=== PATIENT | female | born 1955 | race Caucasian/White ===

== ENCOUNTER → 2018-02-09 08:30 | Outpatient (CLI) | payer BC, SELFPAY ==
[2018-02-09 09:10] LABS: Basophils % 1.1 % (0.1-2.0); Eosinophils # 0.1 K/mm3 (0.0-0.4); Hematocrit 42.9 % (37.0-47.0); Hemoglobin 13.8 g/dL (12.2-16.2); Lymphocytes # 1.1 K/mm3 (0.7-4.5); Mean Corpuscular HGB Conc 32.1 g/dL (31.8-35.4); Mean Corpuscular Hemoglobin 28.9 pg (27.0-31.2); Mean Corpuscular Volume 90.1 fl (81-99); Mean Platelet Volume 7.9 fl (7.4-10.4); Monocytes # 0.3 K/mm3 (0.1-1.0); Monocytes % 7.9 % (1.7-9.3); Neutrophils # 2.1 K/mm3 (1.8-7.8); Platelet Count 219 K/mm3 (142-424); Red Blood Count 4.76 M/mm3 (4.20-5.40); Red Cell Distribution Width 12.4 % (11.5-17.5); White Blood Count 3.6 K/mm3 (4.8-10.8)
[2018-02-09 09:45] LABS: Alanine Aminotransferase 39 U/L (12-78); Albumin Level 4.2 gm/dL (3.4-5.0); Albumin/Globulin Ratio 1.7 (1.1-1.8); Alkaline Phosphatase 64 U/L (46-116); Anion Gap 12.9 mEq/L (5-15); Aspartate Amino Transferase 21 U/L (15-37); Bilirubin,Total 0.7 mg/dL (0.2-1.0); Blood Urea Nitrogen 16 mg/dL (7-18); Calcium 9.2 mg/dL (8.5-10.1); Carbon Dioxide 29 mmol/L (21.0-32.0); Chloride 106 mmol/L (98-107); Chol/HDL Ratio 2.1 (1-3.5); Cholesterol 205 mg/dL (140-200); Creatinine,Serum 0.75 mg/dL (0.55-1.02); Estimated Glomerular Filt Rate 78 ml/min (>60); GFR (African American) 94 ML/MIN (>60); Globulin 2.5 gm/dl (1.3-3.2); Glucose 93 mg/dL (74-106); HDL Cholesterol 98 mg/dL (29-89); LDL Cholesterol 97 mg/dL (0-130); Potassium 3.9 mmoL/L (3.5-5.1); Sodium 144 mmol/L (136-145); Total Protein,Serum 6.7 gm/dL (6.4-8.2); Triglycerides 50 mg/dL (30-200); VLDL Cholesterol 10 mg/dL (0-40)
[2018-02-11 11:25] LABS: Folate >20.0 ng/mL (>3.0)
[2018-02-11 11:28] LABS: Vitamin D 25 Hydroxy 40.1 ng/mL (30.0-100.0)
== END ==
PROVIDERS: PCP Nurse Practitioner Family; Visit Provider Nurse Practitioner Family
DX: E78.1 Pure hyperglyceridemia (principal); E53.8 Deficiency of other specified B group vitamins; M85.80 Other specified disorders of bone density and structure, unspecified site
CPT/HCPCS: 36415; 80053; 80061; 82652; 82746; 85025

== ENCOUNTER → 2018-11-13 08:28 | Outpatient (CLI) | payer BC, SELFPAY ==
[2018-11-13 09:50] LABS: Basophils # 0.1 K/mm3 (0-0.2); Basophils % 1.3 % (0.1-2.0); Eosinophils # 0.2 K/mm3 (0.0-0.4); Eosinophils % 4.4 % (0.1-12.0); Hematocrit 45.6 % (37.0-47.0); Hemoglobin 14.6 g/dL (12.2-16.2); Lymphocytes # 1.1 K/mm3 (0.7-4.5); Lymphocytes % 32.4 % (10-50); Mean Corpuscular HGB Conc 32.1 g/dL (31.8-35.4); Mean Corpuscular Hemoglobin 29.2 pg (27.0-31.2); Mean Corpuscular Volume 90.9 fl (81-99); Mean Platelet Volume 8.2 fl (7.4-10.4); Monocytes # 0.3 K/mm3 (0.1-1.0); Monocytes % 9.3 % (1.7-9.3); Neutrophils # 1.8 K/mm3 (1.8-7.8); Neutrophils % 52.7 % (37.0-80.0); Platelet Count 226 K/mm3 (142-424); Red Blood Count 5.01 M/mm3 (4.20-5.40); Red Cell Distribution Width 12.8 % (11.5-17.5); White Blood Count 3.5 K/mm3 (4.8-10.8)
[2018-11-13 10:18] LABS: Alanine Aminotransferase 41 U/L (12-78); Albumin/Globulin Ratio 1.7 (1.1-1.8); Alkaline Phosphatase 61 U/L (46-116); Anion Gap 12.9 mEq/L (5-15); Aspartate Amino Transferase 22 U/L (15-37); Bilirubin,Total 0.6 mg/dL (0.2-1.0); Blood Urea Nitrogen 17 mg/dL (7-18); Carbon Dioxide 28 mmol/L (21.0-32.0); Chloride 107 mmol/L (98-107); Chol/HDL Ratio 2.2 (1-3.5); Cholesterol 204 mg/dL (140-200); Creatinine,Serum 0.86 mg/dL (0.55-1.02); Estimated Glomerular Filt Rate 67 ml/min (>60); GFR (African American) 81 ML/MIN (>60); Globulin 2.3 gm/dl (1.3-3.2); Glucose 90 mg/dL (74-106); HDL Cholesterol 94 mg/dL (29-89); LDL Cholesterol 103 mg/dL (0-130); Potassium 3.9 mmoL/L (3.5-5.1); Sodium 144 mmol/L (136-145); Total Protein,Serum 6.3 gm/dL (6.4-8.2); Triglycerides 36 mg/dL (30-200); VLDL Cholesterol 7 mg/dL (0-40)
[2018-11-15 03:34] LABS: Vitamin D 25 Hydroxy 30.4 ng/mL (30.0-100.0)
== END ==
PROVIDERS: Visit Provider Nurse Practitioner Family
DX: E78.1 Pure hyperglyceridemia (principal); E53.8 Deficiency of other specified B group vitamins; M85.89 Other specified disorders of bone density and structure, multiple sites
CPT/HCPCS: 36415; 80053; 80061; 82652; 85025

== ENCOUNTER → 2018-12-22 08:24 | Outpatient (CLI) | payer BC, SELFPAY ==
--- NOTE | 2018-12-22 08:27 | XR_ITS ---
PROCEDURE: XR DEXA AXIAL SKELETON CLINICAL INDICATION: OSTEOPENIA COMPARISON: No exams were available for comparison FINDINGS: L1-L4 density has a bone density of 1.389 grams/centimeters sq with a T-score of 1.7. The lowest density in the hips is in the right femoral neck at 0.817 grams/centimeters sq with a T-score -1.6 consistent IMPRESSION: With osteopenia osteopenia with moderate fracture risk. Treatment is advised. Suggest follow-up exam December 2020 Dictated by: Phillip Atkins MD 12/23/2018 07:17 Signed by: <Electronically signed by Phillip Atkins MD in [place]> 12/23/2018 07:17
== END ==
PROVIDERS: PCP Nurse Practitioner Family; Visit Provider Nurse Practitioner Family
DX: Z13.820 Encounter for screening for osteoporosis (principal); M85.89 Other specified disorders of bone density and structure, multiple sites
CPT/HCPCS: 77080

== ENCOUNTER → 2019-12-13 09:56 | Outpatient (CLI) | payer BC, SELFPAY ==
[2019-12-13 10:32] LABS: Basophils # 0.1 K/mm3 (0-0.2); Basophils % 1.4 % (0.1-2.0); Eosinophils # 0.1 K/mm3 (0.0-0.4); Eosinophils % 3.6 % (0.1-12.0); Hematocrit 44.5 % (37.0-47.0); Hemoglobin 15.1 g/dL (12.2-16.2); Lymphocytes # 1.2 K/mm3 (0.7-4.5); Mean Corpuscular Hemoglobin 30.7 pg (27.0-31.2); Mean Corpuscular Volume 90.5 fl (81-99); Mean Platelet Volume 8.4 fl (7.4-10.4); Monocytes # 0.4 K/mm3 (0.1-1.0); Monocytes % 10.1 % (1.7-9.3); Neutrophils # 2.2 K/mm3 (1.8-7.8); Platelet Count 229 K/mm3 (142-424); Red Blood Count 4.92 M/mm3 (4.20-5.40); Red Cell Distribution Width 12.9 % (11.5-17.5)
[2019-12-13 11:40] LABS: Chloride 104 mmol/L (98-107)
[2019-12-13 11:41] LABS: Potassium 4.6 mmoL/L (3.5-5.1); Sodium 140 mmol/L (136-145)
[2019-12-13 11:43] LABS: Alanine Aminotransferase 27 U/L (12-78); Alkaline Phosphatase 48 U/L (38-126); Anion Gap 11.6 mEq/L (5-15); Aspartate Amino Transferase 33 U/L (14-36); Bilirubin,Total 0.7 mg/dl (0.2-1.3); Blood Urea Nitrogen 18 mg/dl (7-17); Carbon Dioxide 29 mmol/L (22.0-30.0); Estimated Glomerular Filt Rate 63 ml/min (>60); GFR (African American) 76 ML/MIN (>60)
[2019-12-13 11:44] LABS: Albumin Level 4.4 g/dl (3.5-5.0); Calcium 9.7 mg/dl (8.4-10.2); Chol/HDL Ratio 2.2 (1-3.5); Cholesterol 199 mg/dl (140-200); Globulin 2.2 g/dL (1.3-3.2); Glucose 94 mg/dl (74-100); HDL Cholesterol 89 mg/dl (40-60); Total Protein,Serum 6.6 g/dl (6.3-8.2); Triglycerides 59 mg/dl (30-150); VLDL Cholesterol 12 mg/dL (0-40)
[2019-12-13 11:55] LABS: Direct LDL Cholesterol 93.02 mg/dL (100-129)
[2019-12-13 12:38] LABS: 25-OH Vitamin D, Total 32.3 ng/mL (30-100)
== END ==
PROVIDERS: Visit Provider Nurse Practitioner Family
DX: Z01.419 Encounter for gynecological examination (general) (routine) without abnormal findings (principal); E78.1 Pure hyperglyceridemia; M85.80 Other specified disorders of bone density and structure, unspecified site; Z86.39 Personal history of other endocrine, nutritional and metabolic disease
CPT/HCPCS: 36415; 80053; 80061; 82306; 85025

== ENCOUNTER → 2020-12-18 11:19 | Outpatient (CLI) | payer BC, MEDICARE, SELFPAY ==
[2020-12-18 12:04] LABS: Basophils # 0.1 K/mm3 (0-0.2); Basophils % 1.4 % (0.1-2.0); Eosinophils # 0.1 K/mm3 (0.0-0.4); Eosinophils % 1.7 % (0.1-12.0); Hematocrit 43.3 % (37.0-47.0); Hemoglobin 14.3 g/dL (12.2-16.2); Lymphocytes # 1.3 K/mm3 (0.7-4.5); Lymphocytes % 26.7 % (10-50); Mean Corpuscular HGB Conc 33.1 g/dL (31.8-35.4); Mean Corpuscular Hemoglobin 29.5 pg (27.0-31.2); Mean Corpuscular Volume 89.1 fl (81-99); Mean Platelet Volume 7.9 fl (7.4-10.4); Monocytes # 0.4 K/mm3 (0.1-1.0); Monocytes % 8.1 % (1.7-9.3); Platelet Count 223 K/mm3 (142-424); Red Blood Count 4.86 M/mm3 (4.20-5.40); Red Cell Distribution Width 13.4 % (11.5-17.5); White Blood Count 4.8 K/mm3 (4.8-10.8)
[2020-12-18 12:54] LABS: Alanine Aminotransferase 23 U/L (12-78); Albumin Level 4.4 g/dl (3.5-5.0); Albumin/Globulin Ratio 1.9 (1.1-1.8); Alkaline Phosphatase 51 U/L (38-126); Anion Gap 13.3 mEq/L (5-15); Aspartate Amino Transferase 31 U/L (14-36); Bilirubin,Total 0.7 mg/dl (0.2-1.3); Blood Urea Nitrogen 16 mg/dl (7-17); Calcium 9.3 mg/dl (8.4-10.2); Carbon Dioxide 28 mmol/L (22.0-30.0); Chloride 105 mmol/L (98-107); Chol/HDL Ratio 2.6 (1-3.5); Cholesterol 199 mg/dl (140-200); Estimated Glomerular Filt Rate 72 ml/min (>60); GFR (African American) 87 ML/MIN (>60); Globulin 2.3 g/dL (1.3-3.2); Glucose 90 mg/dl (74-100); HDL Cholesterol 76 mg/dl (40-60); Potassium 4.3 mmoL/L (3.5-5.1); Sodium 142 mmol/L (136-145); Total Protein,Serum 6.7 g/dl (6.3-8.2); Triglycerides 58 mg/dl (30-150); VLDL Cholesterol 12 mg/dL (0-40)
[2020-12-18 13:05] LABS: Direct LDL Cholesterol 97.49 mg/dL (100-129)
== END ==
PROVIDERS: Visit Provider Nurse Practitioner Family
DX: Z00.00 Encounter for general adult medical examination without abnormal findings (principal); E78.1 Pure hyperglyceridemia; I10 Essential (primary) hypertension
CPT/HCPCS: 36415; 80053; 80061; 85025

== ENCOUNTER → 2021-02-26 09:10 | Outpatient (CLI) | payer MEDICARE, OTHER, SELFPAY ==
--- NOTE | 2021-02-26 09:14 | XR_ITS ---
PROCEDURE: XR DEXA AXIAL SKELETON CLINICAL HISTORY: POST MENOPAUSAL COMPARISON: CR BONE3 BONE DENSITOMETRY(HIP:LT SPINE from 11/07/2016 FINDINGS: The right hip BMD is 0.674 with a T-score of -1.6. The left hip BMD is 0.713 with a T-score of -1.2. The lumbar spine BMD is 1.136 with a T-score of 0.8. Previously the lowest density was recorded at the right femoral neck with T-score of -1.7 IMPRESSION: This patient is considered osteopenic according to the World Health Organization criteria. Bone density is between 10 and 25 percent below young normal. Fracture risk is moderate. Treatment is advised. Based on these results a follow-up exam is recommended in 2 year. Dictated by: Phillip Atkins MD 02/26/2021 11:31 Phillip Atkins MD in [place] 02/26/2021 11:31
== END ==
PROVIDERS: PCP Nurse Practitioner Family; Visit Provider Nurse Practitioner Family
DX: Z13.820 Encounter for screening for osteoporosis (principal); Z78.0 Asymptomatic menopausal state
CPT/HCPCS: 77080

== ENCOUNTER → 2022-07-15 12:26 | Outpatient (CLI) | payer MEDICARE, OTHER, SELFPAY ==
--- NOTE | 2022-07-15 12:34 | XR_ITS ---
FINAL REPORT CLINICAL HISTORY: RT KNEE PAIN FINDINGS: Three views of the right knee reveal no evidence of fracture or dislocation. There are mild and moderate degenerative changes. There is moderate medial compartment joint space narrowing. A small joint effusion is seen. No localized soft tissue abnormality is identified. IMPRESSION: Degenerative changes with no acute bony abnormality. Reviewed, Interpreted and Dictated by Antonio Abrams III, MD Transcribed by Kirti Hdez Authenticated and . [facility]
== END ==
PROVIDERS: PCP Nurse Practitioner Family; Visit Provider Nurse Practitioner Family
DX: M25.561 Pain in right knee (principal)
CPT/HCPCS: 73562

== ENCOUNTER 2022-09-27 09:30 | Day surgery (SDC) | payer MEDICARE, OTHER, SELFPAY ==
[2022-09-24 11:12] VITALS: BMI 31.1
[2022-09-27 09:44] VITALS: BP 168/74; PULSE 77; RESP 18; TEMP 36.7; O2SAT 97
--- NOTE | 2022-09-27 09:59 | P.PN_ITS ---
[facility] Disclaimer: The information contained in this section may have been updated after the patient was seen, as this information can be updated by other users. Medical History History of COVID-19 Hyperlipidemia Hypertension Surgical History H/O colonoscopy History of dilation and curettage History of ear surgery Family History Father Family history of stroke Family history of cancer Mother Family history of myocardial infarction Social History Smoking Status: Never smoker alcohol intake: never substance use type: denies use current occupational status: unemployed Travel in the last 8 weeks: None do you feel safe at home: Yes [facility] Anesthesia Checklist Patient Identification Patient Identification: Arm Band and Verbal (Name & ) Structural Data Admitted From: Home Planned Operative Procedure/s: Colonoscopy Consent for Planned Operative Procedure(s) Verified: Yes NPO Status Verified Time NPO: 00:00 Airway Assessment C-Spine Mobility Assessed: Yes TMJ Mobility Assessed: Yes Dentition: Good Dentition Neurological Assessment Level of Consciousness: Awake Hx Seizures: No Numbness or tingling in extremities: No Anesthesia Plan Anesthesia Risk discussed: Yes Anesthesia Plan: Verified ASA Class: II Anesthesia Type: MAC
[2022-09-27 10:14] VITALS: O2SAT 97
[2022-09-27 10:53] VITALS: BP 101/57; PULSE 71; RESP 16; TEMP 36.5; O2SAT 94
--- NOTE | 2022-09-27 10:58 | P.PCN_ITS ---
Procedure: Date: 09/27/22 Patient Date of :: 1955 Procedure Performed:: Total colonoscopy to terminal ileum with polypectomy using biopsy forceps Indications:: Patient is a 67-year-old female. Her father had rectal cancer diagnosed in his 80s. Interestingly her had colon cancer. She has had colonoscopies by Dr. Us in 2006 and 2011 which were reportedly normal. I did colonoscopy in December 2016 at which time she had what appeared to be hyperplastic polyps. Given family history a recommended 5-year follow-up. Performing Provider:: Antonio Wang MD Referring Provider:: Libby Ty Sedation:: MAC sedation Procedure:: Patient history was obtained and appropriate physical examination was performed. Patient's medications and allergies were reviewed. Informed consent was obtai mickey after explaining the benefits, alternatives, and risks of the procedure including, but not limited to, bleeding, perforation, missed lesions, and adverse reaction to anesthesia medications. Patient was transported to endoscopy procedure room. Patient was connected to monitoring devices. Throughout the procedure the patient's blood pressure, pulse, and oxygen saturations were monitored continuously. Patient identification and planned procedure were verified by the staff. Patient was positioned in lateral decubitus position. Digital anorectal exam was performed. Variable stiffness Olympus colonoscope was inserted and advanced under direct visualization to the cecum. Adequacy of the colonic preparation was noted. The colonoscope was advanced a short distance into the terminal ileum. The colonoscope was then slowly withdrawn while carefully examining the color, texture, anatomy, and integrity of the mucosoa circumferentially. Within the rectum retroflexion was performed. Colonoscope was then withdrawn. Findings:: She had some perianal scarring There were findings of possible diffuse melanosis coli Several diminutive polyps in the rectosigmoid region, likely hyperplastic, removed with biopsy forceps Focal island of prominent mucosa, likely inconsequential, rectosigmoid region biopsied Recommendations:: Repeat colonoscopy pending pathology but will likely 5 years. If biopsies of the rectosigmoid region revealed adenomatous component will need early interval colonoscopy but this seems rather unlikely. Complications:: None immediately apparent Estimated blood obtained (mL): 1
[2022-09-27 11:03] VITALS: BP 122/64; PULSE 69; RESP 16; O2SAT 94
[2022-09-27 11:13] VITALS: BP 136/79; PULSE 58; RESP 16; O2SAT 96
[2022-09-27 11:23] VITALS: BP 139/94; PULSE 68; RESP 16; TEMP 36.6; O2SAT 97
== END 2022-09-27 11:30 | disposition home or self-care (01) ==
PROVIDERS: PCP Nurse Practitioner Family; Visit Provider Surgery
PROC: 0DJD8ZZ Inspection of Lower Intestinal Tract, Via Natural or Artificial Opening Endoscopic (ICD-10-PCS; principal; 2022-09-27 10:30)
DX: Z12.11 Encounter for screening for malignant neoplasm of colon (principal); K63.5 Polyp of colon; Z80.0 Family history of malignant neoplasm of digestive organs; Z86.010 Personal history of colon polyps; Z79.899 Other long term (current) drug therapy
CPT/HCPCS: 45380; 88305; J2704

== ENCOUNTER 2023-10-08 14:39 | Outpatient (CLI) | payer MEDICARE, OTHER, SELFPAY ==
--- NOTE | 2023-10-08 14:45 | XR_ITS ---
FINAL REPORT CLINICAL HISTORY: POST MENOPAUSAL FINDINGS: Using L1-4, the bone mineral density of the spine is 1.185 g/cm2, corresponding to T-score of 1.3. Using the left hip, the bone mineral density of the femoral neck is 0.696 g/cm2, corresponding to a T-score of -1.4. Using the right hip: The bone mineral density of the femoral neck is 0.708 g/cm2, corresponding to a T-score of -1.3 FRAX 10 year fracture risk is 8.9% for a hip fracture and 1.0% for a major osteoporotic fracture.. IMPRESSION: Normal bone mineral density of the lumbar spine. Osteopenic bone mineral density of the bilateral hips. NOTE: T-score: Standard deviation compared with peak bone mass of young adult mean. *Following the recommendations of the International Society of Bone densitometry, classification of hip BMD is based on the lower of two T-scores; total hip or femoral neck. Reviewed, Interpreted and Dictated by Ponce Kohli MD Transcribed by Kirti Hdez Authenticated and [facility]
== END 2023-10-08 23:59 | disposition home or self-care (01) ==
PROVIDERS: PCP Nurse Practitioner Family; Visit Provider Nurse Practitioner Family
DX: Z13.820 Encounter for screening for osteoporosis (principal); Z78.0 Asymptomatic menopausal state
CPT/HCPCS: 77080